=== PATIENT | male | born 1950 | race Caucasian/White ===

== ENCOUNTER → 2018-03-23 09:48 | Outpatient (CLI) | payer MEDICARE, OTHER, SELFPAY ==
[2018-03-23 10:37] LABS: Add Manual Diff / Slide Review NO; Basophils Percent Auto 0.8 % (0-2); Eosinophils Percent Auto 2.6 % (2-4); Hematocrit 39.7 % (41-53); Hemoglobin 13.6 g/dL (13.5-17.5); Lymphocytes Percent Auto 20.1 % (25-40); Mean Corpuscular HGB Conc 34.3 % (30-36); Mean Corpuscular Hemoglobin 28.6 PG (26-34); Mean Corpuscular Volume 83.4 fL (80-100); Monocytes Percent Auto 8.1 % (3-14); Neutrophils Absolute Auto 4800 /uL (3000-5900); Neutrophils Percent Auto 68.4 % (50-75); Platelet Count 177 X10^3/uL (150-400); Red Blood Cell Count 4.77 X10^6/uL (4.5-5.9); Red Cell Distribution Width 13.5 % (11.6-14.8)
[2018-03-23 10:52] LABS: Appearance Urine UA CLEAR; Bilirubin Urine UA NEGATIVE (NEGATIVE); Color Urine UA YELLOW; Glucose Urine UA NEGATIVE (Normal); Ketones Urine UA NEGATIVE (NEGATIVE); Leukocyte Esterase Urine UA NEGATIVE (NEGATIVE); Nitrite Urine UA Negative (Negative); Occult Blood Urine UA TRACE-INTACT (Negative); Protein Urine UA NEGATIVE (Negative); Urobilinogen Urine UA 0.2 E.U./dL (0.2)
[2018-03-23 10:58] LABS: Alanine Aminotransferase 35 IU/L (21-72); Albumin 4.3 g/dL (3.5-5.0); Albumin Globulin Ratio 1.4 (1.0-2.8); Alkaline Phosphatase 53 U/L (38-126); Aspartate Aminotransferase 22 IU/L (17-59); Blood Urea Nitrogen 18 mg/dL (9-20); Calcium 9.2 mg/dL (8.4-10.2); Carbon Dioxide 28 mmol/L (22-32); Chloride 101 mmol/L (98-107); Cholesterol 127 mg/dL (140-199); Estimated Glomerular Filt Rate > 60.0 mL/min (>60); Globulin 3.1 g/dL (1.7-4.1); Glucose 124 mg/dL (80-110); HDL Cholesterol 29 mg/dL (40-60); HEMOLYSIS < 15 (0-50); LDL Cholesterol Calculated 54 mg/dL (<100); Sodium 141 mmol/L (137-145); Total Protein 7.4 g/dL (6.3-8.2); Triglycerides 221 mg/dL (35-150)
[2018-03-23 11:29] LABS: Thyroid Stimulating Hormone 2.25 uIU/mL (0.47-4.68)
== END ==
PROVIDERS: PCP Family Medicine; Visit Provider Family Medicine
DX: E78.5 Hyperlipidemia, unspecified (principal); I10 Essential (primary) hypertension; E78.1 Pure hyperglyceridemia; Z51.81 Encounter for therapeutic drug level monitoring
CPT/HCPCS: 80053; 80061; 81003; 84443; 85025; G0103

== ENCOUNTER → 2018-09-21 12:10 | Outpatient (CLI) | payer MEDICARE, OTHER, SELFPAY ==
[2018-09-21 12:37] LABS: Hemoglobin A1C% w Est Avg Glu 6.1 % (4.0-6.0)
[2018-09-21 12:53] LABS: Alanine Aminotransferase 45 IU/L (21-72); Albumin 4.3 g/dL (3.5-5.0); Albumin Globulin Ratio 1.5 (1.0-2.8); Alkaline Phosphatase 49 U/L (38-126); Aspartate Aminotransferase 26 IU/L (17-59); BUN Creatinine Ratio 18.9 (6-22); Bilirubin Total 0.8 mg/dL (0.2-1.3); Blood Urea Nitrogen 17 mg/dL (9-20); Calcium 9.4 mg/dL (8.4-10.2); Carbon Dioxide 25 mmol/L (22-32); Chloride 104 mmol/L (98-107); Cholesterol 136 mg/dL (140-199); Estimated Glomerular Filt Rate > 60.0 mL/min (>60); Globulin 2.9 g/dL (1.7-4.1); Glucose 101 mg/dL (80-110); HDL Cholesterol 28 mg/dL (40-60); HEMOLYSIS < 15 (0-50); LDL Cholesterol Calculated 76 mg/dL (<100); Sodium 143 mmol/L (137-145); Total Protein 7.2 g/dL (6.3-8.2); Triglycerides 159 mg/dL (35-150)
== END ==
PROVIDERS: PCP Family Medicine; Visit Provider Family Medicine
DX: E78.5 Hyperlipidemia, unspecified (principal); I10 Essential (primary) hypertension; R73.9 Hyperglycemia, unspecified
CPT/HCPCS: 36415; 80053; 80061; 83036

== ENCOUNTER → 2020-02-07 13:59 | Outpatient (CLI) | payer MEDICARE, OTHER, SELFPAY ==
[2020-02-07 17:01] LABS: BUN Creatinine Ratio 20.5 (6-22); Blood Urea Nitrogen 18 mg/dL (9-20); Carbon Dioxide 25 mmol/L (22-32); Chloride 102 mmol/L (98-107); Estimated Glomerular Filt Rate > 60.0 mL/min (>60); Glucose 90 mg/dL (80-110); HEMOLYSIS < 15 (0-50); Potassium 3.7 mmol/L (3.4-5.1); Sodium 139 mmol/L (137-145)
[2020-02-07 17:30] LABS: Prostate Specific Antigen Scrn 0.706 ng/mL (0.1-4.0)
[2020-02-07 17:45] LABS: Creatinine Urine Random 81.2 mg/dL
[2020-02-07 17:47] LABS: Microalbumi Creatinin Ratio Ur 134.2 ug/mg CR (<30); Microalbumin Urine Random 10.9 mg/dL (0-1.6)
== END ==
PROVIDERS: PCP Student in an Organized Health Care Education/Training Program; Referring Provider Student in an Organized Health Care Education/Training Program; Visit Provider Student in an Organized Health Care Education/Training Program
DX: Z12.5 Encounter for screening for malignant neoplasm of prostate (principal); I10 Essential (primary) hypertension; Z87.448 Personal history of other diseases of urinary system; E55.9 Vitamin D deficiency, unspecified; R73.9 Hyperglycemia, unspecified
CPT/HCPCS: 36415; 80048; 82043; 82306; 82570; 83036; G0103

== ENCOUNTER → 2020-12-07 09:44 | Outpatient (CLI) | payer MEDICARE, OTHER, SELFPAY ==
[2020-12-07 10:32] LABS: Hemoglobin A1C% w Est Avg Glu 6.1 % (4.0-6.0)
[2020-12-07 10:42] LABS: BUN Creatinine Ratio 18.7 (6-22); Blood Urea Nitrogen 20 mg/dL (9-20); Carbon Dioxide 28 mmol/L (22-32); Chloride 103 mmol/L (98-107); Estimated Glomerular Filt Rate > 60.0 mL/min (>60); Glucose 118 mg/dL (80-110); HEMOLYSIS < 15 (0-50); Potassium 4.1 mmol/L (3.4-5.1); Sodium 139 mmol/L (137-145)
[2020-12-07 10:44] LABS: Microalbumi Creatinin Ratio Ur 26.6 ug/mg CR (<30); Microalbumin Urine Random 2.9 mg/dL (0-1.6)
== END ==
PROVIDERS: PCP Student in an Organized Health Care Education/Training Program; Referring Provider Student in an Organized Health Care Education/Training Program; Visit Provider Student in an Organized Health Care Education/Training Program
DX: E11.9 Type 2 diabetes mellitus without complications (principal); E55.9 Vitamin D deficiency, unspecified; I10 Essential (primary) hypertension; R80.9 Proteinuria, unspecified
CPT/HCPCS: 36415; 80048; 82043; 82306; 82570; 83036

== ENCOUNTER → 2021-06-07 07:50 | Outpatient (CLI) | payer MEDICARE, OTHER, SELFPAY ==
--- NOTE | 2021-06-07 07:51 | DI.ECHO.S_ITS ---
[place] [facility]---------+ [facility] +---------+ : : [address] : : : : [id number] : : : : Phone: [phone]---------+ Echocardiogram Report + + :Name: ABDULAZIZ HANSEN Study Date: 06/07/2021 Height: 69 in : :[facility] ReadingLocation: Weight: 215 lb : : Gender: Male BSA: 2.1 m2 : :: 1950 Age: 70 yrs BP: 165/84 mmHg: :Reason For Study: EVALUATE [place] : :Ordering Physician: JAMI, : :KARLY Performed By: Zeynep Arguello : :Referring: KARLY FARRELL : + + Interpretation Summary Mild concentric left ventricular hypertrophy with ejection fraction 60-65%. Mildly dilated left atrium. Moderate aortic stenosis. The peak aortic velocity is 3.26 m/sec. Mild aortic regurgitation. Mild mitral annular calcification. Mild mitral regurgitation. The aortic root is mildly dilated. The ascending aorta is mildly enlarged. Procedure: A two-dimensional transthoracic echocardiogram with color flow and Doppler was performed. The study quality was technically adequate. There is no prior echocardiogram noted for this patient. The patient was in sinus rhythm with heart rates between 62-74 bpm during the exam. Left Ventricle: The left ventricle is normal in size. There is mild concentric left ventricular hypertrophy. The ejection fraction is estimated to be 60-65%. There are no focal wall motion abnormalities. Right Ventricle: The right ventricle is normal in size and function. Atria: The left atrium is mildly dilated. Right atrial size is normal. There is no Doppler evidence for an interatrial shunt. Mitral Valve: The mitral valve leaflets are mildly calcified. The mitral valve leaflets appear mildly thickened, but open well. There is mild mitral annular calcification. There is mild mitral regurgitation. Aortic Valve: The aortic valve is moderately calcified. The aortic valve is trileaflet. There is moderate aortic stenosis. The peak aortic velocity is 3.26 m/sec. The aortic valve mean gradient is 24 mmHg. The calculated aortic valve area is 1.2 cm2. There is mild aortic regurgitation. Tricuspid Valve: The tricuspid valve is normal in structure and function. Pulmonary artery pressures cannot be estimated because of the lack of a measurable TR jet velocity but the IVC suggests a CVP of around 3 mmHg. There is trace tricuspid regurgitation. Pulmonic Valve: The pulmonic valve leaflets are thin and pliable; valve motion is normal. There is trace pulmonic regurgitation. Great Vessels: The aortic root is mildly dilated. The ascending aorta is mildly enlarged. The IVC is of normal diameter and collapses greater than 50% with a sniff. This suggests a low right atrial pressure of 3 mm Hg. Pericardium/ Pleura There is no pericardial effusion. There is no pleural effusion. MMode/2D Measurements & Calculations LVIDd: 5.4 cm LVOT diam: 2.3 cm LVIDs: 3.5 cm Ao root diam: 4.3 cm FS: 35.1 % asc Aorta Diam: 3.5 cm IVSd: 1.1 cm Ao Arch Diam (Prox Trans): 2.7 cm LVPWd: 1.1 cm LV norman. diameter/BSA (cm/m^2): 2.5 LV sys. diameter/BSA (cm/m^2): 1.6 LA A2 area: 28.4 cm2 RA long axis: 6.3 cm LA A4 area: 21.5 cm2 RA area: 20.8 cm2 LA length (vol): 6.4 cm RA vol: 58.4 ml LA vol: 81.1 ml RA : 27.4 ml/m2 LA vol index: 38.1 ml/m2 IVC diam: 1.2 cm RVD1 (basal): 3.8 cm TAPSE: 2.2 cm Doppler Measurements & Calculations Ao V2 max: 326.5 cm/sec LVOT Max Eugenio: 96.3 cm/sec Ao V2 mean: 222.9 cm/sec LV V1 max P.7 mmHg Ao max P.0 mmHg LV V1 VTI: 20.9 cm Ao mean P.4 mmHg DULCE(I,D): 1.1 cm2 Ao V2 VTI: 75.5 cm DULCE(V,D): 1.2 cm2 sev ratio: 0.28 DULCE indexed to BSA (cm^2/m^2): 0.54 MV E max eugenio: 95.1 cm/sec PA V2 max: 102.8 cm/sec MV A max eugenio: 112.0 cm/sec PA V2 mean: 73.3 cm/sec MV E/A: 0.85 PA mean P.3 mmHg Med Peak E' Eugenio: 6.0 cm/sec PA pr(Accel): 37.9 mmHg E/E' med: 15.8 Lat Peak E' Eugenio: 6.0 cm/sec E/E' lat: 15.8 E/e' average: 15.8 MV dec time: 0.22 sec SV(LVOT): 86.4 ml Electronically signed by: Monica marshall [place] Physician:06/07/2021 12:27 PM
== END ==
PROVIDERS: PCP Student in an Organized Health Care Education/Training Program; Referring Provider Student in an Organized Health Care Education/Training Program; Visit Provider Student in an Organized Health Care Education/Training Program
DX: I08.0 Rheumatic disorders of both mitral and aortic valves (principal); R01.1 Cardiac murmur, unspecified; I77.810 Thoracic aortic ectasia
CPT/HCPCS: 93306

== ENCOUNTER → 2022-02-24 11:20 | Outpatient (CLI) | payer MEDICARE, OTHER, SELFPAY ==
[2022-02-24 12:24] LABS: Hemoglobin A1C% w Est Avg Glu 5.7 % (4.0-6.0)
[2022-02-24 13:02] LABS: BUN Creatinine Ratio 21.8 (6-22); Blood Urea Nitrogen 19 mg/dL (9-20); Carbon Dioxide 28 mmol/L (22-32); Chloride 102 mmol/L (98-107); Cholesterol 147 mg/dL (140-199); Estimated Glomerular Filt Rate > 60 mL/min (>60); Glucose 111 mg/dL (80-110); HDL Cholesterol 39 mg/dL (40-60); HEMOLYSIS < 15 (0-50); LDL Cholesterol Calculated 65 mg/dL (<100); Potassium 4.2 mmol/L (3.4-5.1); Sodium 137 mmol/L (137-145); Triglycerides 215 mg/dL (35-150)
[2022-02-24 13:36] LABS: Prostate Specific Antigen Scrn 0.863 ng/mL (0.1-4.0)
[2022-02-24 16:36] LABS: Microalbumin Urine Random 2.5 mg/dL (0-1.6)
[2022-02-24 16:48] LABS: Vitamin D 25 Hydroxy (D3) 45.1 ng/mL (30.0-100.0)
[2022-02-24 16:51] LABS: Creatinine Urine Random 66.4 mg/dL; Microalbumi Creatinin Ratio Ur 37.6 ug/mg CR (<30)
== END ==
PROVIDERS: PCP Student in an Organized Health Care Education/Training Program; Referring Provider Student in an Organized Health Care Education/Training Program; Visit Provider Student in an Organized Health Care Education/Training Program
DX: E11.9 Type 2 diabetes mellitus without complications (principal); Z12.5 Encounter for screening for malignant neoplasm of prostate; E55.9 Vitamin D deficiency, unspecified; E78.5 Hyperlipidemia, unspecified; I10 Essential (primary) hypertension; R80.9 Proteinuria, unspecified
CPT/HCPCS: 80048; 80061; 82043; 82306; 82570; 83036; G0103

== ENCOUNTER → 2023-03-07 08:17 | Outpatient (CLI) | payer MEDICARE, OTHER, SELFPAY ==
[2023-03-07 09:47] LABS: Add Manual Diff / Slide Review NO; Basophils Absolute Auto 0 /uL (0-100); Basophils Percent Auto 0.6 % (0-2); Eosinophils Absolute Auto 100 /uL (0-450); Eosinophils Percent Auto 2.2 % (2-4); Hematocrit 38.8 % (41-53); Hemoglobin 13.2 g/dL (13.5-17.5); Lymphocytes Absolute Auto 1300 /uL (1100-4500); Lymphocytes Percent Auto 22.8 % (25-40); Mean Corpuscular HGB Conc 33.9 % (30-36); Mean Corpuscular Hemoglobin 28.6 PG (26-34); Mean Corpuscular Volume 84.2 fL (80-100); Monocytes Absolute Auto 500 /uL (0-900); Neutrophils Absolute Auto 3900 /uL (1500-7000); Neutrophils Percent Auto 66.4 % (50-75); Platelet Count 139 X10^3/uL (150-400); Red Blood Cell Count 4.61 X10^6/uL (4.5-5.9); Red Cell Distribution Width 14.4 % (11.6-14.8); White Blood Cell Count 5.9 X10^3/uL (4.5-11.0)
[2023-03-07 10:19] LABS: Microalbumin Urine Random 3.5 mg/dL (0-1.6)
[2023-03-07 10:21] LABS: Creatinine Urine Random 206.8 mg/dL; Microalbumi Creatinin Ratio Ur 16.9 ug/mg CR (<30)
[2023-03-07 10:28] LABS: Alanine Aminotransferase 18 IU/L (<50); Albumin Globulin Ratio 1.5 (1.0-2.8); Alkaline Phosphatase 44 U/L (38-126); Aspartate Aminotransferase 22 IU/L (17-59); BUN Creatinine Ratio 19.2 (6-22); Bilirubin Total 0.9 mg/dL (0.2-1.3); Blood Urea Nitrogen 19 mg/dL (9-20); Calcium 8.8 mg/dL (8.4-10.2); Carbon Dioxide 25 mmol/L (22-32); Chloride 104 mmol/L (98-107); Cholesterol 165 mg/dL (140-199); Estimated Glomerular Filt Rate > 60 mL/min (>60); Globulin 2.7 g/dL (1.7-4.1); Glucose 107 mg/dL (80-110); HDL Cholesterol 35 mg/dL (40-60); HEMOLYSIS < 15 (0-50); LDL Cholesterol Calculated 97 mg/dL (<100); Sodium 138 mmol/L (137-145); Total Protein 6.7 g/dL (6.3-8.2); Triglycerides 167 mg/dL (35-150)
[2023-03-07 10:56] LABS: Prostate Specific Antigen Scrn 1.05 ng/mL (0.1-4.0)
[2023-03-08 06:07] LABS: Labcorp Hemoglobin (Hb) A1c 5.8 % (4.8-5.6)
== END ==
PROVIDERS: PCP Student in an Organized Health Care Education/Training Program; Referring Provider Student in an Organized Health Care Education/Training Program; Visit Provider Student in an Organized Health Care Education/Training Program
DX: Z12.5 Encounter for screening for malignant neoplasm of prostate (principal); I10 Essential (primary) hypertension; E78.2 Mixed hyperlipidemia; R80.9 Proteinuria, unspecified; E11.9 Type 2 diabetes mellitus without complications
CPT/HCPCS: 36415; 80053; 80061; 82043; 82570; 83036; 85025; G0103

== ENCOUNTER → 2023-03-28 14:56 | Outpatient (CLI) | payer MEDICARE, OTHER, SELFPAY ==
--- NOTE | 2023-03-28 14:57 | DI.RAD.S_ITS ---
PROCEDURE: XR FOOT LT MIN 3V INDICATIONS: injury to left great toe TECHNIQUE: 3 views of the foot were acquired. COMPARISON: [facility], RG, XR FOOT 3V RT, 03/03/2004, 14:02. FINDINGS: Bones: There is a nondisplaced transverse fracture in the 1st distal phalanx. No suspicious bony lesions. Degenerative joint disease, [id number] at the 1st metatarsophalangeal joint and [id number] in multiple tarsometatarsal joints and interphalangeal joints. Calcaneal spurring. Soft tissues: No tibiotalar joint effusion. Achilles tendon appears normal. Dorsal soft tissue swelling. IMPRESSION: 1. Nondisplaced 1st distal phalangeal fracture. Dictated by: Barbara Augustin M.D. on 03/28/2023 at 17:27 Approved by: Barbara Augustin M.D. on 03/28/2023 at 17:30
== END ==
PROVIDERS: PCP Pediatrics; Referring Provider Pediatrics; Visit Provider Pediatrics
DX: S92.425A Nondisplaced fracture of distal phalanx of left great toe, initial encounter for closed fracture (principal); S97.112A Crushing injury of left great toe, initial encounter; X58.XXXA Exposure to other specified factors, initial encounter
CPT/HCPCS: 73630

== ENCOUNTER → 2023-04-28 07:55 | Outpatient (CLI) | payer MEDICARE, OTHER, SELFPAY ==
--- NOTE | 2023-04-28 07:58 | DI.ECHO.S_ITS ---
[place] [facility]---------+ [facility] +---------+ : : [address] : : : : [id number] : : : : Phone: [phone]+ Echocardiogram Report + + :Name: ABDULAZIZ HANSEN Study Date: 04/28/2023 Height: 69 in : :[facility] ReadingLocation: Weight: 210 lb : : Gender: Male BSA: 2.1 m2 : :: 1950 Age: 72 yrs BP: 142/71 mmHg: :Reason For Study: Nonrheumatic Aortic Valve Stenosis : :Ordering Physician: IZAIAH, : :YORDAN Burleson Performed By: Billie Judd : :Referring: YORDAN BLISS : + + Interpretation Summary The left ventricle is normal in size. Left ventricular systolic function appears normal without focal wall motion abnormalities. The ejection fraction is estimated to be 60-65%. Diastolic parameters suggest a relaxation abnormality of the left ventricle, consistent with probable normal filling pressures. The right ventricle is normal size. The right ventricular systolic function is normal. Pulmonary artery pressures cannot be estimated because of the lack of a measurable TR jet velocity. The left atrial size is normal. Right atrial size is normal. There is severe aortic stenosis. The peak aortic velocity is 4.70 m/sec. The calculated aortic valve area is 0.8 cm2. There is mild to moderate aortic regurgitation. Compared to the prior echo study, there has been an increase in the severity of aortic stenosis. The aortic root is normal size. Procedure: A two-dimensional transthoracic echocardiogram with color flow and Doppler was performed. The study quality was technically adequate. Comparison is made with the echocardiogram of 06/07/2021. The patient was in normal sinus rhythm during the exam. Left Ventricle: The left ventricle is normal in size. Left ventricular systolic function appears normal without focal wall motion abnormalities. The ejection fraction is estimated to be 60-65%. Diastolic parameters suggest a relaxation abnormality of the left ventricle, consistent with probable normal filling pressures. Right Ventricle: The right ventricle is normal size. The right ventricular systolic function is normal. Atria: The left atrial size is normal. Right atrial size is normal. There is no Doppler evidence for an interatrial shunt. Mitral Valve: The mitral valve leaflets are mildly calcified. The mitral valve mean gradient is 3 mmHg. There is trace mitral regurgitation. Aortic Valve: The aortic valve is not well visualized. The aortic valve is heavily calcified. There is severe aortic stenosis. The peak aortic velocity is 4.70 m/sec. The aortic valve mean gradient is 51 mmHg. The calculated aortic valve area is 0.8 cm2. Compared to the prior echo study, there has been an increase in the severity of aortic stenosis. There is mild to moderate aortic regurgitation. Tricuspid Valve: The tricuspid valve is normal. There is no tricuspid stenosis. There is trace tricuspid regurgitation. Pulmonary artery pressures cannot be estimated because of the lack of a measurable TR jet velocity. Pulmonic Valve: The pulmonic valve is not well visualized. There is no pulmonic valvular stenosis. There is no pulmonic valvular regurgitation. Great Vessels: The aortic root is normal size. The ascending aorta is normal in size. The pulmonary artery is normal size. The IVC is of normal diameter and collapses greater than 50% with a sniff. This suggests a low right atrial pressure of 3 mm Hg. Pericardium/ Pleura There is a trivial pericardial effusion noted. There is no pleural effusion. MMode/2D Measurements & Calculations LVIDd: 4.0 cm LVOT diam: 2.3 cm LVIDs: 2.7 cm Ao root diam: 3.2 cm FS: 32.5 % asc Aorta Diam: 3.4 cm IVSd: 1.6 cm LVPWd: 1.5 cm LV norman. diameter/BSA (cm/m^2): 1.9 LV sys. diameter/BSA (cm/m^2): 1.3 LA A2 area: 20.9 cm2 RA long axis: 5.4 cm LA A4 area: 16.8 cm2 RA area: 13.7 cm2 LA length (vol): 5.6 cm RA vol: 29.9 ml LA vol: 52.9 ml RA : 14.2 ml/m2 LA vol index: 25.1 ml/m2 RVD1 (basal): 3.5 cm LVLs ap4: 6.3 cm LVLd ap2: 8.1 cm TAPSE_phl: 2.9 cm LVLs ap2: 6.5 cm Doppler Measurements & Calculations Ao V2 max: 463.6 cm/sec LVOT Max Eugenio: 89.8 cm/sec Ao V2 mean: 339.0 cm/sec LV V1 max P.2 mmHg Ao max P.0 mmHg LV V1 VTI: 21.8 cm Ao mean P.4 mmHg DULCE(I,D): 0.80 cm2 Ao V2 VTI: 113.0 cm DULCE(V,D): 0.80 cm2 sev ratio: 0.19 DULCE indexed to BSA (cm^2/m^2): 0.38 MV E max eugenio: 101.0 cm/sec PA V2 max: 107.0 cm/sec MV A max eugenio: 116.0 cm/sec PA V2 mean: 75.6 cm/sec MV E/A: 0.87 PA mean P.0 mmHg Med Peak E' Eugenio: 5.5 cm/sec PA pr(Accel): 26.8 mmHg E/E' med: 18.3 Lat Peak E' Eugenio: 9.4 cm/sec E/E' lat: 10.8 E/e' average: 14.5 MV dec time: 0.25 sec MVA(VTI): 1.9 cm2 MV V2 mean: 86.5 cm/sec SV(LVOT): 90.4 ml MV mean P.0 mmHg MV V2 VTI: 48.5 cm AV VR_phl: 0.19 MV P1/2t-pr_phl: 72.0 msec DULCE(VTI)/BSA_phl: 0.38 Reading Physician:02:38 PM
== END ==
PROVIDERS: PCP Pediatrics; Referring Provider Pediatrics; Visit Provider Pediatrics
DX: I35.2 Nonrheumatic aortic (valve) stenosis with insufficiency (principal)
CPT/HCPCS: 93306

== ENCOUNTER → 2023-12-05 12:31 | Outpatient (CLI) | payer MEDICARE, OTHER, SELFPAY ==
[2023-12-05 13:31] LABS: Add Manual Diff / Slide Review NO; Basophils Absolute Auto 0 /uL (0-100); Basophils Percent Auto 0.7 % (0-2); Eosinophils Absolute Auto 100 /uL (0-450); Hematocrit 39.9 % (41-53); Hemoglobin 13.6 g/dL (13.5-17.5); Lymphocytes Absolute Auto 1300 /uL (1100-4500); Lymphocytes Percent Auto 22.7 % (25-40); Mean Corpuscular Hemoglobin 28.6 PG (26-34); Mean Corpuscular Volume 84.1 fL (80-100); Monocytes Absolute Auto 500 /uL (0-900); Monocytes Percent Auto 8.1 % (3-14); Neutrophils Absolute Auto 3900 /uL (1500-7000); Neutrophils Percent Auto 66.5 % (50-75); Platelet Count 157 X10^3/uL (150-400); Red Blood Cell Count 4.75 X10^6/uL (4.5-5.9); Red Cell Distribution Width 14.1 % (11.6-14.8); White Blood Cell Count 5.8 X10^3/uL (4.5-11.0)
[2023-12-05 13:46] LABS: Hemoglobin A1C% w Est Avg Glu 5.4 % (4.0-6.0)
[2023-12-05 13:55] LABS: Alanine Aminotransferase 15 IU/L (<50); Albumin Globulin Ratio 1.2 (1.0-2.8); Alkaline Phosphatase 49 U/L (38-126); Aspartate Aminotransferase 22 IU/L (17-59); BUN Creatinine Ratio 16.5 (6-22); Blood Urea Nitrogen 16 mg/dL (9-20); Carbon Dioxide 28 mmol/L (22-32); Chloride 104 mmol/L (98-107); Cholesterol 148 mg/dL (140-199); Estimated Glomerular Filt Rate > 60 mL/min (>60); Globulin 3.3 g/dL (1.7-4.1); Glucose 110 mg/dL (80-110); HDL Cholesterol 43 mg/dL (40-60); HEMOLYSIS < 15 (0-50); LDL Cholesterol Calculated 74 mg/dL (<100); Magnesium 1.9 mg/dL (1.6-2.3); Potassium 4.2 mmol/L (3.4-5.1); Sodium 137 mmol/L (137-145); Total Protein 7.3 g/dL (6.3-8.2); Triglycerides 157 mg/dL (35-150)
[2023-12-05 14:24] LABS: Thyroid Stimulating Hormone 2.86 uIU/mL (0.47-4.68)
== END ==
PROVIDERS: PCP Pediatrics; Referring Provider Internal Medicine Cardiovascular Disease; Visit Provider Internal Medicine Cardiovascular Disease
DX: I10 Essential (primary) hypertension (principal); R73.03 Prediabetes; E78.5 Hyperlipidemia, unspecified; I35.0 Nonrheumatic aortic (valve) stenosis
CPT/HCPCS: 36415; 80053; 80061; 83036; 83735; 84439; 84443; 85025

== ENCOUNTER → 2023-12-16 11:19 | Outpatient (CLI) | payer MEDICARE, OTHER, SELFPAY ==
[2023-12-16 12:16] LABS: Add Manual Diff / Slide Review NO; Basophils Absolute Auto 100 /uL (0-100); Basophils Percent Auto 0.8 % (0-2); Eosinophils Absolute Auto 200 /uL (0-450); Lymphocytes Absolute Auto 1500 /uL (1100-4500); Lymphocytes Percent Auto 19.1 % (25-40); Mean Corpuscular HGB Conc 34.2 % (30-36); Mean Corpuscular Hemoglobin 28.6 PG (26-34); Mean Corpuscular Volume 83.8 fL (80-100); Monocytes Absolute Auto 500 /uL (0-900); Monocytes Percent Auto 6.9 % (3-14); Neutrophils Absolute Auto 5700 /uL (1500-7000); Neutrophils Percent Auto 71.2 % (50-75); Platelet Count 175 X10^3/uL (150-400); Red Blood Cell Count 4.53 X10^6/uL (4.5-5.9); Red Cell Distribution Width 13.9 % (11.6-14.8); White Blood Cell Count 7.9 X10^3/uL (4.5-11.0)
[2023-12-16 12:40] LABS: BUN Creatinine Ratio 16.1 (6-22); Blood Urea Nitrogen 15 mg/dL (9-20); Calcium 8.8 mg/dL (8.4-10.2); Carbon Dioxide 28 mmol/L (22-32); Chloride 107 mmol/L (98-107); Estimated Glomerular Filt Rate > 60 mL/min (>60); Glucose 98 mg/dL (80-110); HEMOLYSIS < 15 (0-50); Potassium 3.9 mmol/L (3.4-5.1); Sodium 139 mmol/L (137-145)
== END ==
PROVIDERS: PCP Pediatrics; Referring Provider Internal Medicine; Visit Provider Internal Medicine
DX: I35.0 Nonrheumatic aortic (valve) stenosis (principal)
CPT/HCPCS: 36415; 80048; 85025

== ENCOUNTER → 2024-02-05 13:10 | Outpatient (CLI) | payer MEDICARE, OTHER, SELFPAY ==
[2024-02-05 14:11] LABS: Add Manual Diff / Slide Review NO; Basophils Absolute Auto 100 /uL (0-100); Basophils Percent Auto 0.8 % (0-2); Eosinophils Absolute Auto 100 /uL (0-450); Eosinophils Percent Auto 2.4 % (2-4); Hematocrit 40.1 % (41-53); Hemoglobin 13.6 g/dL (13.5-17.5); Lymphocytes Absolute Auto 1500 /uL (1100-4500); Lymphocytes Percent Auto 22.9 % (25-40); Mean Corpuscular HGB Conc 33.8 % (30-36); Mean Corpuscular Hemoglobin 28.6 PG (26-34); Mean Corpuscular Volume 84.5 fL (80-100); Monocytes Absolute Auto 500 /uL (0-900); Monocytes Percent Auto 7.3 % (3-14); Neutrophils Absolute Auto 4200 /uL (1500-7000); Neutrophils Percent Auto 66.6 % (50-75); Platelet Count 151 X10^3/uL (150-400); Red Blood Cell Count 4.75 X10^6/uL (4.5-5.9); White Blood Cell Count 6.3 X10^3/uL (4.5-11.0)
[2024-02-05 14:36] LABS: BUN Creatinine Ratio 15.8 (6-22); Blood Urea Nitrogen 16 mg/dL (9-20); Calcium 9.1 mg/dL (8.4-10.2); Carbon Dioxide 27 mmol/L (22-32); Chloride 107 mmol/L (98-107); Estimated Glomerular Filt Rate > 60 mL/min (>60); Glucose 116 mg/dL (80-110); HEMOLYSIS < 15 (0-50); Potassium 4.4 mmol/L (3.4-5.1); Sodium 138 mmol/L (137-145)
== END ==
PROVIDERS: PCP Family Medicine; Referring Provider Internal Medicine Interventional Cardiology; Visit Provider Internal Medicine Interventional Cardiology
DX: I35.0 Nonrheumatic aortic (valve) stenosis (principal)
CPT/HCPCS: 36415; 80048; 85025

== ENCOUNTER 2024-02-24 18:52 | Emergency (ER) | payer MEDICARE, OTHER, SELFPAY ==
[2024-02-24] VITALS (18 sets, daily range): BP systolic 105–193; BP diastolic 62–99; PULSE 90–119; RESP 8–27; TEMP 36.4; O2SAT 95–99; BMI 28.0
--- NOTE | 2024-02-24 18:58 | ED.GENADULT ---
HPI - General Adult General Chief complaint: Dizziness Stated complaint: dizziness, aortic valve replacement 4/3 Time Seen by Provider: 02/24/24 18:57 History of Present Illness HPI narrative: 73-year-old male with intermittent dizziness sensation and feeling that he might pass out, intermittent through the day today, and has been present and increasing frequency since TAVR placement 02/09/[address] [facility] by Dr. Britt. He denies chest pain, denies shortness of breath. Denies sensation of irregular heartbeat in or pounding fast heart rate sensation in chest. Denies headache, no trauma or injury. No weakness to face arm or leg. After his TAVR procedure he felt like he had these episodes once or twice daily, that he seemed to be able to abort with deep breathing, however it seems increasing in frequency these episodes of near-syncope, not necessarily improving with deep breathing abortive measures. He has not actually passed out. No shaking or seizure-like activity. No incontinence of urine or stool. He has some associated diaphoresis intermittently. Denies pain is in chest back arm leg neck jaw. He is taken aspirin daily. He recalls having the aortic stenosis murmur diagnosed on a routine visit, echocardiogram done spring 2023, then [facility] cardiac catheterization that apparently showed clean vessels, then TAVR procedure at [facility] on 02/14/24. Related Data Previous Rx's Medication Instructions Recorded amlodipine 5 mg tablet 5 mg PO BEDTIME #90 tabs 01/30/24 atorvastatin 20 mg tablet (Lipitor) 20 mg PO BEDTIME #90 tabs 01/30/24 lisinopril 20 mg tablet 20 mg PO DAILY #90 tabs 01/30/24 Allergies Allergy/AdvReac Type Severity Reaction Status Date / Time No Known Drug Allergies Allergy Verified 02/24/24 18:55 Review of Systems Review of Systems ROS Unobtainable: All systems reviewed & are unremarkable except as noted in HPI and below Patient History Medical History Mild anemia Generalized headaches (Unknown) History of smallpox (Unknown) Bright's disease (Unknown) Glomerulonephritis (Unknown) Hyperlipemia (Unknown) Hypertension (Unknown) Colon polyps (Unknown) Surgical History Hx of colonoscopy with polypectomy (08/2012) Family History Brother Prostate cancer Father Heart disease Hypertension Mother Asthma Blood disease Social History Smoking Status: Never smoker (quit 1971) Tobacco: How many years used: 4 alcohol intake: former (2-3 times per week) substance use type: marijuana (occasional) Smoking Status: Never smoker (quit 1971) Exam Narrative Exam Narrative: GENERAL: Well-developed patient, in mild distress. HEAD: Atraumatic. Normocephalic. EYES: Pupils equal round and reactive. Extraocular motions intact. No scleral icterus. No injection or drainage. ENT: Nose without bleeding, purulent drainage. Throat without erythema, tonsillar hypertrophy or exudate. Airway patent. NECK: Trachea midline. Non tender CARDIOVASCULAR: Fast rate, regular rhyth, without murmurs, gallops, or rubs. RESPIRATORY: Clear to auscultation. Breath sounds equal bilaterally. No wheezes, rales, or rhonchi. GASTROINTESTINAL: Abdomen soft, non-tender, nondistended. EXTREMITIES: No edema or joint tenderness. BACK: Nontender without deformity or crepitance. No flank tenderness. NEURO: AOx3. SKIN: No rash or erythema of visible areas Initial Vital Signs Initial Vital Signs: Vital Signs Temperature 97.6 F 02/24/24 18:55 Pulse Rate 118 H 02/24/24 18:55 Respiratory Rate 17 02/24/24 18:55 Blood Pressure 146/87 H 02/24/24 18:55 Pulse Oximetry 97 02/24/24 18:55 Oxygen Delivery Method Room Air 02/24/24 18:55 Course Orders Ordered: ED Orders 02/24/24 18:59 XR chest 1V Stat EKG-12 Lead Stat 02/24/24 19:03 Complete Blood Count AUTO DIFF Stat Comprehensive Metabolic Panel Stat Lipase Stat Magnesium Stat PTT Partial Thromboplastin Victor Hugo Stat Prothrombin Time INR Stat Troponin & CK Cardiac Panel Stat 02/24/24 19:05 CT head/brain wo con Stat 02/24/24 20:30 Magnesium Stat Discontinued Medications Amiodarone HCl (Amiodarone 150 Mg/3 Ml Vial) 300 mg IV NOW ONE Stop: 02/24/24 20:13 Last Admin: 02/24/24 20:21 Dose: Not Given Documented By: RAY Amiodarone HCl (Amiodarone 150 Mg/3 Ml Vial) 150 mg IV NOW ONE Stop: 02/24/24 20:11 Last Admin: 02/24/24 20:14 Dose: 150 mg Documented By: RAY Aspirin (Aspirin 81 Mg Chew Tab) 324 mg PO NOW ONE Stop: 02/24/24 19:00 Last Admin: 02/24/24 19:15 Dose: 243 mg Documented By: MELBA Amiodarone HCl/Dextrose (Nexterone) 360 mg in 200 mls @ 33.333 mls/hr IV NOW ONE; Protocol Stop: 02/25/24 02:17 Last Admin: 02/24/24 20:34 Dose: 33.333 mls/hr, 33.33 mls/hr Documented By: MELBA Vital Signs Vital signs: Vital Signs - 8 hr 02/24/24 18:55 02/24/24 19:03 02/24/24 19:07 Temperature 97.6 F Pulse Rate 118 H 117 H Respiratory Rate 17 18 Blood Pressure 146/87 H 134/86 Pulse Oximetry 97 Oxygen Delivery Method Room Air 02/24/24 19:07 02/24/24 19:30 02/24/24 20:00 Temperature Pulse Rate 112 H 118 H 101 H Respiratory Rate 10 L 25 H 27 H Blood Pressure Pulse Oximetry 99 99 98 Oxygen Delivery Method 02/24/24 20:14 02/24/24 20:14 02/24/24 20:14 Temperature Pulse Rate 111 H Respiratory Rate 24 Blood Pressure 193/99 H 193/99 H Pulse Oximetry 99 Oxygen Delivery Method 02/24/24 20:29 02/24/24 20:29 02/24/24 20:30 Temperature Pulse Rate 119 H Respiratory Rate 13 Blood Pressure 147/67 H 149/70 H Pulse Oximetry 98 Oxygen Delivery Method 02/24/24 20:30 02/24/24 20:40 02/24/24 20:40 Temperature Pulse Rate 118 H 110 H Respiratory Rate 16 11 L Blood Pressure 122/73 Pulse Oximetry 98 98 Oxygen Delivery Method 02/24/24 20:50 02/24/24 20:50 02/24/24 21:00 Temperature Pulse Rate 104 H Respiratory Rate 11 L Blood Pressure 122/81 124/72 Pulse Oximetry 98 Oxygen Delivery Method 02/24/24 21:00 02/24/24 21:10 02/24/24 21:10 Temperature Pulse Rate 101 H 100 H Respiratory Rate 11 L 11 L Blood Pressure 116/74 Pulse Oximetry 98 98 Oxygen Delivery Method 02/24/24 21:20 02/24/24 21:20 02/24/24 21:30 Temperature Pulse Rate 95 H 99 H Respiratory Rate 8 L 10 L Blood Pressure 105/68 Pulse Oximetry 98 98 Oxygen Delivery Method 02/24/24 21:30 02/24/24 21:40 02/24/24 21:40 Temperature Pulse Rate 94 H Respiratory Rate 9 L Blood Pressure 110/71 110/72 Pulse Oximetry 97 Oxygen Delivery Method 02/24/24 21:50 02/24/24 21:50 02/24/24 22:00 Temperature Pulse Rate 90 Respiratory Rate 12 Blood Pressure 117/70 123/62 Pulse Oximetry 95 Oxygen Delivery Method 02/24/24 22:00 02/24/24 22:10 02/24/24 22:10 Temperature Pulse Rate 91 H 94 H Respiratory Rate 10 L 12 Blood Pressure 115/65 Pulse Oximetry 98 98 Oxygen Delivery Method Medical Decision Making Differential Diagnosis Differential Diagnosis: Syncope, tachycardia, dysrhythmia, cerebrovascular disease, TIA/stroke Medical Records Medical records reviewed: Yes I reviewed the patient's medical records. Lab Data Lab results reviewed: Yes I reviewed the patient's lab results. 02/24/24 19:03 02/24/24 19:03 Labs: Lab Results 02/24/24 02/24/24 Range/Units 19:03 20:30 WBC 11.4 H (4.5-11.0) X10^3/uL RBC 4.86 (4.5-5.9) X10^6/uL Hgb 13.6 (13.5-17.5) g/dL Hct 40.1 L (41-53) % MCV 82.4 (80-100) fL MCH 28.0 (26-34) PG MCHC 34.0 (30-36) % RDW 14.2 (11.6-14.8) % Plt Count 269 (150-400) X10^3/uL Neut % (Auto) 68.8 (50-75) % Lymph % (Auto) 19.7 L (25-40) % [place] % (Auto) 8.3 (3-14) % Eos % (Auto) 2.1 (2-4) % Baso % (Auto) 1.1 (0-2) % Neut # (Auto) 7900 H (0102-7885) /uL Lymph # (Auto) 2300 (9651-0011) /uL [place] # (Auto) 900 (0-900) /uL Eos # (Auto) 200 (0-450) /uL Baso # (Auto) 100 (0-100) /uL PT 12.5 (9.4-12.5) SECONDS INR 1.1 (0.9-1.3) APTT 36 (25.1-36.5) SECONDS Sodium 139 (137-145) mmol/L Potassium 4.2 (3.4-5.1) mmol/L Chloride 105 (98-107) mmol/L Carbon Dioxide 25 (22-32) mmol/L BUN 22 H (9-20) mg/dL Creatinine 1.03 (0.66-1.25) mg/dL Estimated GFR > 60 (>60) mL/min BUN/Creatinine Ratio 21.4 (6-22) Glucose 112 H (80-110) mg/dL Calcium 9.4 (8.4-10.2) mg/dL Magnesium 2.1 1.9 (1.6-2.3) mg/dL Total Bilirubin 0.9 (0.2-1.3) mg/dL AST 27 (17-59) IU/L ALT 17 (<50) IU/L Alkaline Phosphatase 65 (38-126) U/L Total Creatine Kinase 55 (55-170) U/L Troponin I 0.015 (0.01-0.034) ng/mL Total Protein 7.7 (6.3-8.2) g/dL Albumin 4.6 (3.5-5.0) g/dL Globulin 3.1 (1.7-4.1) g/dL Albumin/Globulin Ratio 1.5 (1.0-2.8) Lipase 167 (23-300) U/L Imaging Data CT scan - head: Radiologist's Impression: [address] [address] [address] Scan Report Signed Patient: Cisco Leggett MR#: [id number] : 1950 Acct:[id number] Age/Sex: 73 / M Date of Service: 02/24/24 Loc: ED Accession Number: [id number] Procedure: CT head/brain wo con Ordering Provider: Geoff Jovel MD PROCEDURE: CT HEAD/BRAIN WO CON INDICATIONS: dizziness TECHNIQUE: Noncontrast 4.5 mm thick angled axial sections acquired from the foramen magnum to the vertex, with coronal and sagittal reformats. For radiation dose reduction, the following was used: automated exposure control, adjustment of mA and/or kV according to patient size. COMPARISON: None. FINDINGS: Image quality: Diagnostic. CSF spaces: Basal cisterns are patent. No extra-axial fluid collections. The ventricles are symmetric in size and shape. Brain: No intracranial bleeds or masses. There is cerebral volume loss for age, with resultant ventricular and sulcal prominence. There are periventricular and deep white matter chronic small vessel ischemic changes. There is intracranial internal carotid artery atherosclerosis. Skull and face: Calvarium and visualized facial bones appear intact, without suspicious lesions. Sinuses: Visualized sinuses and mastoids are clear. IMPRESSION: 1. No acute intracranial pathology. 2. Age related volume loss and moderate white matter chronic ischemic changes. Dictated by: Jose R Rutledge M.D. on 02/24/2024 at 19:20 Approved by: Jose R Rutledge M.D. on 02/24/2024 at 19:20 Chest x-ray: Radiologist's Impression: [place] [address] XRay Report Signed Patient: Cisco Leggett MR#: [id number] : 1950 Acct:[id number] Age/Sex: 73 / M Date of Service: 02/24/24 Loc: ED Accession Number: [id number] Procedure: XR chest 1V Ordering Provider: Geoff Jovel MD PROCEDURE: XR CHEST 1V INDICATIONS: chest pain TECHNIQUE: One view of the chest was acquired. COMPARISON: None. FINDINGS: Surgical changes and devices: None. Lungs and pleura: Lungs are clear. No pleural effusions or pneumothorax. Mediastinum: Mediastinal contours appear normal. Heart size is normal. Bones and chest wall: No suspicious bony lesions. Overlying soft tissues appear unremarkable. IMPRESSION: No acute cardiopulmonary pathology. Dictated by: Jose R Rutledge M.D. on 02/24/2024 at 19:23 Approved by: Joes R Rutledge M.D. on 02/24/2024 at 19:23 ECG Data Attestation: I personally reviewed and interpreted this ECG as follows: Interpretation: 02/24/24 at 2015h, EKG showed wide complex rhythm with rate 120 beats per minute, left bundle-branch block pattern noted, different than comparison study 10/21/2022 that showed normal sinus rhythm with rate 90 and right bundle pattern 02/24/2024 at 2010h, Rhythm Strip showed wide complex tachycardia with rate 180-200, nonsustained but for approximally 75-100 beats 02/24/2024 at 1904h, EKG showed Wide complex rhythm with rate 113, left bundle branch block pattern, looks similar to EKG 1, similar in rate. MDM Narrative Medical decision making narrative: 73-year-old male with a intermittent near-syncope symptoms on occasion after TAVR procedure [facility] 02/09/2024, increasing frequency of these event, no longer responding deep breathing measures, had approximately 10 of these events earlier today. No associated chest pain but some diaphoresis. CT head negative. EKG shows left bundle branch block pattern, with ventricular response rate 113, which appears different than previous available EKG here from 08/21/2023 which showed right bundle branch block normal sinus rhythm. Troponin 0.015 negative. Creatinine electrolytes normal. Hemoglobin unremarkable. We will consult [facility] Additional Information: 1950, case discussed with Cardiology at [facility] Dr Edmonds, who believes patient should be admitted here on telemetry, does not recommend transfer to their facility at this time, could also consider echocardiogram. We will contact our on-call vision care associate Dr. Zenaida romano, if he might be the 1 to review echocardiogram, then anticipate discussing case with hospitalist 1999, case discussed with on-call cardiology Dr. Chen, agrees with need for admission here, could have intermittent high-grade AVR status post TAVR, observe to see if this is what is happening, as he might need pacemaker if this is the case. We will contact hospitalist regarding admission here on telemetry. Will request 02/09/24 comparison EKG from [facility] if any can be sent now Case discussed with hospitalist Dr. Sommer, accepts patient for admission to observation telemetry 2009, Patient then had nonsustained run of wide complex tachycardia proximally 100 beats, while he was feeling the same symptoms of near-syncope, did not actually pass out, spontaneously aborted, no defibrillation, normotensive. Could be PSVT or AfibRVR episode with LBBB, could be ventricular tachycardia, IV amiodarone bolus ordered, then infusion. Pads placed. [facility], he does not feel comfortable admitting here, requests transfer. Will contact [facility] again. Case discussed again with Dr. Edmonds cardiology [facility], he can consult, admit to hospitalist service there. Agrees with amiodarone 150 mg bolus with infusion for now, advised no other treatments for now. Await call back from [facility] hospitalist service. Patient/family informed current recommendations, anticipate [facility] 2[facility] patient for [facility], no further tachyarrhythmia on monitor, on amiodarone infusion after bolus, EMS team here for transfer to [facility], stable/improved Critical Care Time Critical Care Time Critical Care Time: Yes Total Critical Care Time: 45 Attestation: The high probability of a clinically significant, sudden or life threatening deterioration of the [cardiopulmonary] systems required my full and direct attention, intervention and personal management. The aggregate critical care time was [45] minutes. This time is in addition to time spent performing reported procedures but includes the following: [x] Data Review and interpretation [x] Patient assessment and monitoring of vital signs [x] Documentation [x] Medication orders and management Discharge Plan Departure Patient Disposition: [facility] Clinical Impression: Near syncope, Status post transcatheter aortic valve replacement (TAVR) using bioprosthesis, Left bundle branch block, Tachycardia Prescriptions: No Action atorvastatin [Lipitor] 20 mg tablet 20 mg PO BEDTIME Qty: 90 3RF Hold Instructions: Needs labs lisinopril 20 mg tablet 20 mg PO DAILY Qty: 90 3RF Hold Instructions: Needs labs amlodipine 5 mg tablet 5 mg PO BEDTIME Qty: 90 3RF Hold Instructions: Needs labs Rx Instructions: start taking at bedtime Referrals: Felix Pizano, [Primary Care Provider] -
--- NOTE | 2024-02-24 19:05 | DI.CT.S_ITS ---
PROCEDURE: CT HEAD/BRAIN WO CON INDICATIONS: dizziness TECHNIQUE: Noncontrast 4.5 mm thick angled axial sections acquired from the foramen magnum to the vertex, with coronal and sagittal reformats. For radiation dose reduction, the following was used: automated exposure control, adjustment of mA and/or kV according to patient size. COMPARISON: None. FINDINGS: Image quality: Diagnostic. CSF spaces: Basal cisterns are patent. No extra-axial fluid collections. The ventricles are symmetric in size and shape. Brain: No intracranial bleeds or masses. There is cerebral volume loss for age, with resultant ventricular and sulcal prominence. There are periventricular and deep white matter chronic small vessel ischemic changes. There is intracranial internal carotid artery atherosclerosis. Skull and face: Calvarium and visualized facial bones appear intact, without suspicious lesions. Sinuses: Visualized sinuses and mastoids are clear. IMPRESSION: 1. No acute intracranial pathology. 2. Age related volume loss and moderate white matter chronic ischemic changes. Dictated by: Jose R Rutledge M.D. on 02/24/2024 at 19:20 Approved by: Jose R Rutledge M.D. on 02/24/2024 at 19:20
[2024-02-24] MEDS: ASPIRIN 81 MG CHEW TAB 324 MG PO (19:15)
[2024-02-24 19:21] LABS: INR 1.1 (0.9-1.3); Prothrombin Time 12.5 SECONDS (9.4-12.5)
[2024-02-24 19:23] LABS: PTT Partial Thromboplastin Tim 36 SECONDS (25.1-36.5)
[2024-02-24 19:25] LABS: Alanine Aminotransferase 17 IU/L (<50); Albumin 4.6 g/dL (3.5-5.0); Albumin Globulin Ratio 1.5 (1.0-2.8); Alkaline Phosphatase 65 U/L (38-126); Aspartate Aminotransferase 27 IU/L (17-59); BUN Creatinine Ratio 21.4 (6-22); Bilirubin Total 0.9 mg/dL (0.2-1.3); Blood Urea Nitrogen 22 mg/dL (9-20); Calcium 9.4 mg/dL (8.4-10.2); Carbon Dioxide 25 mmol/L (22-32); Chloride 105 mmol/L (98-107); Creatine Kinase 55 U/L (55-170); Estimated Glomerular Filt Rate > 60 mL/min (>60); Globulin 3.1 g/dL (1.7-4.1); Glucose 112 mg/dL (80-110); HEMOLYSIS 45 (0-50); Lipase 167 U/L (23-300); Magnesium 2.1 mg/dL (1.6-2.3); Potassium 4.2 mmol/L (3.4-5.1); Sodium 139 mmol/L (137-145); Total Protein 7.7 g/dL (6.3-8.2)
[2024-02-24 19:29] LABS: Add Manual Diff / Slide Review NO; Basophils Absolute Auto 100 /uL (0-100); Basophils Percent Auto 1.1 % (0-2); Eosinophils Absolute Auto 200 /uL (0-450); Eosinophils Percent Auto 2.1 % (2-4); Hematocrit 40.1 % (41-53); Hemoglobin 13.6 g/dL (13.5-17.5); Lymphocytes Absolute Auto 2300 /uL (1100-4500); Lymphocytes Percent Auto 19.7 % (25-40); Mean Corpuscular Volume 82.4 fL (80-100); Monocytes Absolute Auto 900 /uL (0-900); Monocytes Percent Auto 8.3 % (3-14); Neutrophils Absolute Auto 7900 /uL (1500-7000); Neutrophils Percent Auto 68.8 % (50-75); Platelet Count 269 X10^3/uL (150-400); Red Blood Cell Count 4.86 X10^6/uL (4.5-5.9); Red Cell Distribution Width 14.2 % (11.6-14.8); White Blood Cell Count 11.4 X10^3/uL (4.5-11.0)
[2024-02-24 19:36] LABS: Troponin I 0.015 ng/mL (0.01-0.034)
[2024-02-24] MEDS: AMIODARONE 150 MG/3 ML VIAL IV (20:14)
--- NOTE | 2024-02-24 20:15 | PC.NURSE ---
Pts rhythm on the monitor noted to be sustained Vtach. This RN and multiple staff to bedside, POLLO Jovel at bedside. Verbal order for 150 of amiodarone given IV @ 2013 by Claus FLETCHER. Pt noted to be awake and alert. Pt states that this is the feeling that he has been having when he does feel that he is going to pass out. Pt had a total of three runs of Vtach witnessed by staff in this time period. POLLO Jovel putting a call out to Cardiology w this new information.
[2024-02-24] MEDS: AMIODARONE 360 MG/200 ML PIGGYBACK 33.33 MG IV (20:34)
[2024-02-24 20:50] LABS: Magnesium 1.9 mg/dL (1.6-2.3)
--- NOTE | 2024-02-24 21:25 | PC.NURSE ---
Run of Vtach noted for about 10 seconds. Pt remained alert and oriented as in previous episodes. Pt not noting any pain at this time.
--- NOTE | 2024-02-24 22:11 | PC.NURSE ---
ED NOTE: Patient transferred to [facility] at [address] Jovel and excepting MD Dr. THORNTON for continuity of care post Aortic Valve replacement.
--- NOTE | 2024-02-24 22:13 | PC.NURSE ---
Pt report given to [facility] crew. Pts called to update on pts transfer status to [facility].
--- NOTE | 2024-04-02 15:45 | PC.NURSE ---
late entry- per RN patient was transferred to another facility with amiodarone infusing.
== END 2024-02-24 22:22 | disposition short-term general hospital (02) ==
PROVIDERS: Emergency Provider Emergency Medicine; PCP Family Medicine
DX: R55 Syncope and collapse (principal); I44.7 Left bundle-branch block, unspecified; R00.0 Tachycardia, unspecified; R07.9 Chest pain, unspecified; Z95.3 Presence of xenogenic heart valve
CPT/HCPCS: 36415; 70450; 71045; 80053; 82550; 83690; 83735; 84484; 85025; 85610; 85730; 93005; 93010; 96365; 96366; 96375; 99284; 99285; J0282

== ENCOUNTER → 2024-07-12 13:22 | Outpatient (CLI) | payer MEDICARE, OTHER, SELFPAY ==
--- NOTE | 2024-07-12 13:23 | DI.RAD.S_ITS ---
PROCEDURE: XR FOOT RT MIN 3V INDICATIONS: Right foot pain TECHNIQUE: 3 views of the foot were acquired. COMPARISON: [facility], CR, XR FOOT LT MIN 3V, 03/28/2023, 14:53. FINDINGS: Bones: No fractures or dislocations. Moderate degenerative changes. Calcaneal spurs. No suspicious bony lesions. Soft tissues: No tibiotalar joint effusion. Achilles tendon appears normal. IMPRESSION: No acute bony abnormality. Dictated by: Uday Erickson M.D. on 07/12/2024 at 20:03 Approved by: Uday Erickson M.D. on 07/12/2024 at 20:06
== END ==
PROVIDERS: PCP Family Medicine; Referring Provider Nurse Practitioner Family; Visit Provider Nurse Practitioner Family
DX: M77.31 Calcaneal spur, right foot (principal); M79.671 Pain in right foot
CPT/HCPCS: 73630

== ENCOUNTER 2024-08-06 08:09 | Day surgery (SDC) | payer MEDICARE, OTHER, SELFPAY ==
--- NOTE | 2024-08-06 | PATH_ITS ---
[facility] Accession Number: [id number] No. of containers..01 Tissue . 01 Material submitted: . colon - TRANSVERSE POLYP . 01 Diagnosis: TRANSVERSE COLON POLYP, BIOPSY: Tubular adenoma. MRV 08/07/2024 1353 Local . 01 Electronically signed: . Lisa Pitts MD, Pathologist NPI- [id number] . 01 Gross description: . TRANSVERSE POLYP: Received in formalin is 1 fragment(s) of vega, soft tissue measuring 0.3 x 0.3 x 0.3 cm submitted entirely in 1 cassette(s) /DIANDRA 08/07/2024 0059 Local . 01 Pathologist provided ICD-10: D12.3 . 01 CPT . 538248 Specimen Comment: A courtesy copy of this report has been sent to [phone] Performed at: [address] [facility] [id number] MD Brendan De Paz MD Phone: [phone]
--- NOTE | 2024-08-06 09:03 | P.HP_ITS ---
History of Present Illness History of Present Illness Date Patient Seen: 08/06/24 Time Patient Seen: 09:04 Chief complaint: Screening Colonoscopy Narrative: 74-year-old man personal history of colonic polyps here for screening colonoscopy. Last colonoscopy 5 years ago. No family history of colon cancer. No abdominal concerns today. [facility] Medical History Presence of combination internal cardiac defibrillator (ICD) and pacemaker Mild anemia Generalized headaches (Unknown) History of smallpox (Unknown) Bright's disease (Unknown) Glomerulonephritis (Unknown) Hyperlipemia (Unknown) Hypertension (Unknown) Colon polyps (Unknown) Surgical History Hx of colonoscopy with polypectomy (08/2012) Family History Brother Prostate cancer Father Heart disease Hypertension Mother Asthma Blood disease Social History Smoking Status: Never smoker Tobacco: How many years used: 4 alcohol intake: never substance use type: marijuana (occasional) Meds Home Medications and Allergies Home Medications Medication Instructions Recorded Confirmed Type amlodipine 5 mg tablet 5 mg PO BEDTIME #90 tabs 01/30/24 08/06/24 Rx lisinopril 20 mg tablet 20 mg PO DAILY #90 tabs 01/30/24 08/06/24 Rx amiodarone 200 mg tablet 200 mg PO DAILY 04/25/24 08/06/24 History aspirin 81 mg chewable tablet 81 mg PO DAILY 04/25/24 08/06/24 History atorvastatin 10 mg tablet 10 mg PO DAILY 04/25/24 08/06/24 History metoprolol succinate 100 mg 100 mg PO DAILY 04/25/24 08/06/24 History tablet,extended release 24 hr sodium,potassium,mag sulfates 17.5 See Rx Instructions PO .COMPLEX 05/30/24 07/12/24 Rx gram-3.13 gram-1.6 gram oral soln #354 mL (Suprep Bowel Prep Kit) Allergies Allergy/AdvReac Type Severity Reaction Status Date / Time No Known Drug Allergies Allergy Verified 08/06/24 08:19 Exam Narrative Exam Narrative: General adult man alert oriented no acute distress Chest nonlabored respiration Extremities warm well perfused Assessment & Plan Assessment and plan (1) Colon polyps: Qualifiers: Colon polyp type: unspecified Colon location: unspecified part of colon Qualified Code(s): K63.5 - Polyp of colon Status: Acute Assessment & Plan narrative: The patient requires colorectal screening and colonoscopy is recommended. Technical details were discussed. Risks, benefits, alternatives explained. Risks including but not limited to myocardial infarction, aspiration, bleeding, pain, missed lesion, incomplete examination, need for further radiographic studies, intestinal injury, and need for major abdominal surgery were discussed. All questions were answered to their satisfaction, and they are in agreement with this plan. Time-Based Coding :: [TOTAL MINUTES] spent with patient and on the chart (including review of chart, obtaining history, exam, reviewing outside data, placing orders, documenting exam and treatment plan, and counseling patient) on [DATE].
[2024-08-06 09:32] VITALS: BP 112/58; PULSE 55; RESP 16; TEMP 36.2; O2SAT 95
--- NOTE | 2024-08-06 09:35 | P.OP.COLON_ITS ---
Operative Date/Time/Diagnoses Date of procedure: 08/06/24 Time of procedure: 09:35 Pre-op diagnosis: History of colonic polyps Procedure & Clinicians Study performed: Colonoscopy and polypectomy Same procedure as scheduled: Yes Indications: Colorectal screening Surgeon: Vipin Neves Procedure Notes Procedure in detail: The history and physical was performed/updated and the patient is ASA class is 3. The procedure was discussed in detail with the patient. Potential risks complications including infection, bleeding, missed diagnosis, perforation, need for surgery, and were explained. Their questions were answered and informed consent was obtained. Patient was brought to the procedure room and placed standard monitoring equipment. The patient's vital signs were monitored continuously throughout the entire procedure. Prior to starting time-out was performed. The patient was placed in the left lateral recumbent position. Procedural sedation was administered by anesthesia. Examination began with a thorough inspection of the perianal area there was no evidence of fissures, fistulae, external hemorrhoids or cutaneous malignancy. The colonoscopy scope was then placed into the anal canal and was advanced to the cecum, which was identified by the ileocecal valve, the appendiceal orifice and the confluence of the taenia. The scope was then slowly withdrawn examining colon thoroughly in all directions, irrigating it of any residual stool. The scope was retroflexed within the rectum The patient tolerated the procedure well. They will be discharged once criteria are met. The prep was of fair quality. The withdrawl time was 14 minutes. FINDINGS * Extensive barton diverticulosis * Transverse colon 3-5 mm polyp removed with biopsy forceps. * Internal hemorrhoids Specimen(s): other (Transverse colon polyp) Impression: Colonic polyp x1 Post-procedure Recommendations: High fiber diet Plan for aftercare: Follow up dependent on pathology findings Disposition: same day surgery
[2024-08-06 09:36] VITALS: BP 106/57; PULSE 55; RESP 15; O2SAT 93
[2024-08-06 09:42] VITALS: BP 104/59; PULSE 55; RESP 12; TEMP 36.4; O2SAT 94
[2024-08-06 09:43] VITALS: BP 111/64; PULSE 55; RESP 11; TEMP 36.3; O2SAT 94
== END 2024-08-06 09:55 | disposition home or self-care (01) ==
PROVIDERS: PCP Family Medicine; Referring Provider Surgery; Visit Provider Surgery
PROC: 0DJD8ZZ Inspection of Lower Intestinal Tract, Via Natural or Artificial Opening Endoscopic (ICD-10-PCS; CPT 45378; principal; 2024-08-06 09:15)
DX: Z12.11 Encounter for screening for malignant neoplasm of colon (principal); Z86.0100 Personal history of colon polyps, unspecified; K57.30 Diverticulosis of large intestine without perforation or abscess without bleeding; K64.8 Other hemorrhoids; D12.3 Benign neoplasm of transverse colon
CPT/HCPCS: 45380; J2704

== ENCOUNTER 2024-10-12 22:48 | Emergency (ER) | payer MEDICARE, OTHER, SELFPAY ==
[2024-10-12 22:51] VITALS: BP 162/77; PULSE 60; RESP 18; TEMP 36.8; O2SAT 98; BMI 28.0
--- NOTE | 2024-10-12 22:57 | DI.RAD.S_ITS ---
PROCEDURE: XR CHEST 1V INDICATIONS: chest pain TECHNIQUE: One view of the chest was acquired. COMPARISON: [facility], CR, XR CHEST 1V, 02/24/2024, 19:07. FINDINGS: Lordotic patient position. Surgical changes and devices: Multi lead left pacemaker. Aortic valvuloplasty. Lungs and pleura: Lungs are clear. No pleural effusions or pneumothorax. Mediastinum: Mild cardiomegaly. Normal mediastinal contour. Bones and chest wall: No suspicious bony lesions. Overlying soft tissues appear unremarkable. IMPRESSION: No acute process. Stable mild cardiomegaly. Dictated by: Veronica Vazquez M.D. on 10/12/2024 at 23:52 Approved by: Veronica Vazquez M.D. on 10/12/2024 at 23:53
--- NOTE | 2024-10-12 23:04 | EKG_ITS ---
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
[2024-10-12 23:44] LABS: Add Manual Diff / Slide Review NO; Basophils Absolute Auto 100 /uL (0-100); Basophils Percent Auto 1.1 % (0-2); Eosinophils Absolute Auto 100 /uL (0-450); Hematocrit 41.3 % (41-53); Lymphocytes Absolute Auto 1300 /uL (1100-4500); Lymphocytes Percent Auto 18.7 % (25-40); Mean Corpuscular Hemoglobin 29.7 PG (26-34); Mean Corpuscular Volume 87.5 fL (80-100); Monocytes Absolute Auto 700 /uL (0-900); Monocytes Percent Auto 10.4 % (3-14); Neutrophils Absolute Auto 4800 /uL (1500-7000); Neutrophils Percent Auto 67.8 % (50-75); Platelet Count 141 X10^3/uL (150-400); Red Blood Cell Count 4.72 X10^6/uL (4.5-5.9); Red Cell Distribution Width 13.6 % (11.6-14.8); White Blood Cell Count 7.1 X10^3/uL (4.5-11.0)
[2024-10-12 23:49] LABS: Prothrombin Time 11.4 SECONDS (9.4-12.5)
[2024-10-12 23:52] LABS: PTT Partial Thromboplastin Tim 36 SECONDS (25.1-36.5)
[2024-10-12 23:53] LABS: Alanine Aminotransferase 28 IU/L (<50); Albumin 4.1 g/dL (3.5-5.0); Albumin Globulin Ratio 1.3 (1.0-2.8); Alkaline Phosphatase 46 U/L (38-126); Aspartate Aminotransferase 34 IU/L (17-59); BUN Creatinine Ratio 15.9 (6-22); Bilirubin Total 0.7 mg/dL (0.2-1.3); Blood Urea Nitrogen 20 mg/dL (9-20); Calcium 9.6 mg/dL (8.4-10.2); Carbon Dioxide 26 mmol/L (22-32); Chloride 105 mmol/L (98-107); Creatine Kinase 54 U/L (55-170); Estimated Glomerular Filt Rate 59 mL/min (>60); Globulin 3.2 g/dL (1.7-4.1); Glucose 127 mg/dL (80-110); HEMOLYSIS 15 (0-50); Lipase 174 U/L (23-300); Magnesium 1.9 mg/dL (1.6-2.3); Potassium 3.9 mmol/L (3.4-5.1); Sodium 136 mmol/L (137-145); Total Protein 7.3 g/dL (6.3-8.2)
[2024-10-12 23:59] VITALS: PULSE 57; RESP 15; O2SAT 97
[2024-10-13] VITALS (8 sets, daily range): BP systolic 112–162; BP diastolic 66–77; PULSE 54–56; RESP 10–18; O2SAT 94–98
[2024-10-13 00:05] LABS: NT-proBNP (BNP-Adult 18+) 140 pg/mL (<450); Troponin I < 0.012 ng/mL (0.01-0.034)
--- NOTE | 2024-10-13 01:31 | ED.GENADULT ---
HPI - General Adult General Chief complaint: Dizziness Stated complaint: weakness Time Seen by Provider: 10/13/24 01:09 Source: patient Mode of arrival: Ambulatory History of Present Illness HPI narrative: 74-year-old male with history of TAVR, history of AICD/pacemaker, taking amiodarone, cardiology clinic visit due next month, no shocking chest sensation, complains of 2 days duration of generalized fatigue. He also admits that he has not been sleeping very well the last couple of nights, multiple social stressors. Denies any chest pain or shortness of breath symptoms. No fevers or chills. He does not have any abdominal pain, nausea, vomiting, black or red stools, loose stools, dysuria or frequency of urination. He denies pain to his anterior chest, jaw, arm, back, shoulder blade. No leg pain symptoms. Denies medication changes, denies taking any extra doses of his medications, denies missing any prescribed chronic medications. Admits to prior alcohol and marijuana use, none recent. No shakiness or diaphoresis symptoms. Related Data Home Medications Medication Instructions Recorded Confirmed amiodarone 200 mg tablet 200 mg PO DAILY 04/25/24 09/20/24 aspirin 81 mg chewable tablet 81 mg PO DAILY 04/25/24 09/20/24 atorvastatin 10 mg tablet 10 mg PO DAILY 04/25/24 09/20/24 metoprolol succinate 100 mg 100 mg PO DAILY 04/25/24 09/20/24 tablet,extended release 24 hr Previous Rx's Medication Instructions Recorded amlodipine 5 mg tablet 5 mg PO BEDTIME #90 tabs 01/30/24 lisinopril 20 mg tablet 20 mg PO DAILY #90 tabs 01/30/24 Allergies Allergy/AdvReac Type Severity Reaction Status Date / Time No Known Drug Allergies Allergy Verified 09/20/24 08:32 Patient History Medical History History of transcatheter aortic valve replacement (TAVR) Presence of combination internal cardiac defibrillator (ICD) and pacemaker Mild anemia Generalized headaches (Unknown) History of smallpox (Unknown) Bright's disease (Unknown) Glomerulonephritis (Unknown) Hyperlipemia (Unknown) Hypertension (Unknown) Colon polyps (Unknown) Surgical History Hx of colonoscopy with polypectomy (08/2012) Family History Brother Prostate cancer Father Heart disease Hypertension Mother Asthma Blood disease Social History Smoking Status: Never smoker Tobacco: How many years used: 4 alcohol intake: never substance use type: marijuana (occasional) Smoking Status: Never smoker alcohol intake frequency: a few times a month Exam Narrative Exam Narrative: GENERAL: Well-developed patient, in mild distress. HEAD: Atraumatic. Normocephalic. EYES: Pupils equal round and reactive. Extraocular motions intact. No scleral icterus. No injection or drainage. ENT: Nose without bleeding, purulent drainage. Throat without erythema, tonsillar hypertrophy or exudate. Airway patent. NECK: Trachea midline. Non tender CARDIOVASCULAR: Regular rate and rhythm without murmurs, gallops, or rubs. RESPIRATORY: Clear to auscultation. Breath sounds equal bilaterally. No wheezes, rales, or rhonchi. Left anterior chest pacer/AICD site, no redness or crepitance or tenderness. GASTROINTESTINAL: Abdomen soft, non-tender, nondistended. EXTREMITIES: No edema or joint tenderness. BACK: Nontender without deformity or crepitance. No flank tenderness. NEURO: AOx3. Motor functions grossly nonfocal SKIN: No rash or erythema of visible areas Initial Vital Signs Initial Vital Signs: Vital Signs Temperature 98.2 F 10/12/24 22:51 Pulse Rate 60 10/12/24 22:51 Respiratory Rate 18 10/12/24 22:51 Blood Pressure 162/77 H 10/12/24 22:51 Pulse Oximetry 98 10/12/24 22:51 Oxygen Delivery Method Room Air 10/12/24 22:51 Course Orders Ordered: ED Orders 10/12/24 22:57 XR chest 1V Stat EKG-12 Lead Stat 10/12/24 23:17 Complete Blood Count AUTO DIFF Stat Comprehensive Metabolic Panel Stat Lipase Stat Magnesium Stat NT-proBNP (BNP-Adult 18+) Stat PTT Partial Thromboplastin Victor Hugo Stat Prothrombin Time INR Stat Troponin & CK Cardiac Panel Stat 10/13/24 01:55 Troponin I Stat Vital Signs Vital signs: Vital Signs - 8 hr 10/12/24 22:51 10/12/24 23:59 10/13/24 00:00 Temperature 98.2 F Pulse Rate 60 57 L 55 L Respiratory Rate 18 15 14 Blood Pressure 162/77 H Pulse Oximetry 98 97 96 Oxygen Delivery Method Room Air 10/13/24 00:00 10/13/24 00:30 10/13/24 01:00 Temperature Pulse Rate Respiratory Rate Blood Pressure 162/77 H 128/66 138/71 Pulse Oximetry Oxygen Delivery Method 10/13/24 01:00 10/13/24 01:30 10/13/24 01:30 Temperature Pulse Rate 54 L 54 L Respiratory Rate 13 18 Blood Pressure 117/66 Pulse Oximetry 97 96 Oxygen Delivery Method 10/13/24 02:00 10/13/24 02:30 10/13/24 02:30 Temperature Pulse Rate 54 L Respiratory Rate 10 L Blood Pressure 128/68 112/67 Pulse Oximetry 94 Oxygen Delivery Method 10/13/24 03:00 10/13/24 03:00 10/13/24 03:30 Temperature Pulse Rate 54 L Respiratory Rate 10 L Blood Pressure 134/69 122/67 Pulse Oximetry 97 Oxygen Delivery Method 10/13/24 03:30 Temperature Pulse Rate 56 L Respiratory Rate 13 Blood Pressure Pulse Oximetry 98 Oxygen Delivery Method Medical Decision Making Lab Data Lab results reviewed: Yes I reviewed the patient's lab results. Lab results narrative: White blood cell count 7100, hemoglobin 14, platelets adequate. Basic metabolic panel unremarkable. Liver functions and lipase normal. Troponin negative/unmeasurable. BNP 140 normal 10/12/24 23:17 10/12/24 23:17 Labs: Lab Results 10/12/24 10/13/24 Range/Units 23:17 01:55 WBC 7.1 (4.5-11.0) X10^3/uL RBC 4.72 (4.5-5.9) X10^6/uL Hgb 14.0 (13.5-17.5) g/dL Hct 41.3 (41-53) % MCV 87.5 (80-100) fL MCH 29.7 (26-34) PG MCHC 34.0 (30-36) % RDW 13.6 (11.6-14.8) % Plt Count 141 L (150-400) X10^3/uL Neut % (Auto) 67.8 (50-75) % Lymph % (Auto) 18.7 L (25-40) % [place] % (Auto) 10.4 (3-14) % Eos % (Auto) 2.0 (2-4) % Baso % (Auto) 1.1 (0-2) % Neut # (Auto) 4800 (7222-6745) /uL Lymph # (Auto) 1300 (8382-2131) /uL [place] # (Auto) 700 (0-900) /uL Eos # (Auto) 100 (0-450) /uL Baso # (Auto) 100 (0-100) /uL PT 11.4 (9.4-12.5) SECONDS INR 1.0 (0.9-1.3) APTT 36 (25.1-36.5) SECONDS Sodium 136 L (137-145) mmol/L Potassium 3.9 (3.4-5.1) mmol/L Chloride 105 (98-107) mmol/L Carbon Dioxide 26 (22-32) mmol/L BUN 20 (9-20) mg/dL Creatinine 1.26 H (0.66-1.25) mg/dL Estimated GFR 59 L (>60) mL/min BUN/Creatinine Ratio 15.9 (6-22) Glucose 127 H (80-110) mg/dL Calcium 9.6 (8.4-10.2) mg/dL Magnesium 1.9 (1.6-2.3) mg/dL Total Bilirubin 0.7 (0.2-1.3) mg/dL AST 34 (17-59) IU/L ALT 28 (<50) IU/L Alkaline Phosphatase 46 (38-126) U/L Total Creatine Kinase 54 L (55-170) U/L Troponin I < 0.012 < 0.012 (0.01-0.034) ng/mL NT-Pro-B Natriuret Pep 140 (<450) pg/mL Total Protein 7.3 (6.3-8.2) g/dL Albumin 4.1 (3.5-5.0) g/dL Globulin 3.2 (1.7-4.1) g/dL Albumin/Globulin Ratio 1.3 (1.0-2.8) Lipase 174 (23-300) U/L Imaging Data Chest x-ray: Radiologist's Impression: [place] [id number] XRay Report Signed Patient: Cisco Leggett MR#: [id number] : 1950 Acct:[id number] Age/Sex: 74 / M Date of Service: 10/12/24 Loc: ED Accession Number: [id number] Procedure: XR chest 1V Ordering Provider: Geoff Jovel MD PROCEDURE: XR CHEST 1V INDICATIONS: chest pain TECHNIQUE: One view of the chest was acquired. COMPARISON: [facility], , XR CHEST 1V, 02/24/2024, 19:07. FINDINGS: Lordotic patient position. Surgical changes and devices: Multi lead left pacemaker. Aortic valvuloplasty. Lungs and pleura: Lungs are clear. No pleural effusions or pneumothorax. Mediastinum: Mild cardiomegaly. Normal mediastinal contour. Bones and chest wall: No suspicious bony lesions. Overlying soft tissues appear unremarkable. IMPRESSION: No acute process. Stable mild cardiomegaly. Dictated by: Veronica Vazquez M.D. on 10/12/2024 at 23:52 Approved by: Veronica Vazquez M.D. on 10/12/2024 at 23:53 ECG Data Attestation: I personally reviewed and interpreted this ECG as follows: Interpretation: 2304, AV dual paced rhythm with ventricular rate 55. TX 198, QRS 164, QTC 489. MDM Narrative Medical decision making narrative: 74-year-old male with history of AICD pacemaker has generalized fatigue through today, recent days not sleeping well could likely be component, cites recent social stressors. No thoughts of hurting self or others. No change in medication, which includes amiodarone. He has not feel like his pacemaker AICD has shocked him. EKG shows paced rhythm, serial troponins negative/unmeasurable. Electrolytes unremarkable. Pacemaker interrogation. Faxed report [employer] received and reviewed. Implant date 02/26/2024, last programmed 04/09/2024, no ventricular tachycardia events, PVCs were recorded, no events greater than 3 beats ectopy. No defibrillation events. No overdrive pacing events. Heart rate range noted 55-58 beats per minute. Interval repeat troponin also negative/unmeasurable. Patient believes his [employer] architect is in [facility] who manages his pacemaker, heart rate on pacer interrogation 55-58 noted, consistent with rate seen here, on monitor has paced rate here 54 bpm. This could be contributing to his fatigue, and may need higher baseline heart rate setting. He will contact his [facility] oracle soa architect tomorrow Monday, to coordinate possible adjustment in pacemaker baseline heart rate setting. Also encouraged to try to obtain more regular sleep pattern, consider counseling or other resources for stress management. Continue current chronic medication regimen for now. Discharge Plan Departure Patient Disposition: Home Clinical Impression: Generalized weakness, Bradycardia, Disturbance of sleep, History of cardiac pacemaker Activity Restrictions/Additional Instructions: Complaint of generalized weakness, recent disturbance in sleep pattern likely contributing factor, ongoing social stressors reported. Consider counseling if needed, discuss resources with your primary care provider. You also have a history of cardiac pacemaker/AICD [employer]. On monitor and EKG here looks like you had complete paced rhythms, all beats were being generated by your pacemaker, no [place] beats seemed obvious while here. Your heart rate however was only about 54 beats per minute average, which is bradycardia. This low setting maybe contributing to your fatigue, perhaps she would benefit from a higher baseline heart rate setting on your pacemaker. Discuss this with your oracle so[employer] architect, who you stated was in the [facility]. Call office of your oracle soa architect tomorrow Monday, to coordinate possible change in baseline heart rate setting. We did query the [employer] pacemaker, interrogation was done, report does not mentioned any shocking or overdrive pacing or any interventions necessary. There were no ventricular ectopy events that were treated. You do have some premature ventricular contractions but no recorded sequence of beats more than 3 in a row. Heart rate range on the interrogation also seemed fairly low, 55-58 beats per minute noted. Contact your oracle so[employer] architect tomorrow Monday to coordinate possible adjustment of your baseline heart rate, to see if that makes you feel more energetic. Encouraged better sleep hygiene, and mental health services as needed to help with social stressors, and improved sleep pattern. Continue your chronic regular medications for now. Return earlier to this/nearest emergency department for any change worsening symptoms or any concerns prior Prescriptions: No Action lisinopril 20 mg tablet 20 mg PO DAILY Qty: 90 3RF Hold Instructions: Needs labs amlodipine 5 mg tablet 5 mg PO BEDTIME Qty: 90 3RF Hold Instructions: Needs labs Rx Instructions: start taking at bedtime metoprolol succinate 100 mg tablet extended release 24 hr 100 mg PO DAILY amiodarone 200 mg tablet 200 mg PO DAILY atorvastatin 10 mg tablet 10 mg PO DAILY aspirin 81 mg tablet,chewable 81 mg PO DAILY Referrals: Felix Pziano DO [Primary Care Provider] - Stand Alone Forms: Patient Portal/API/Survey
[2024-10-13 02:35] LABS: Troponin I < 0.012 ng/mL (0.01-0.034)
== END 2024-10-13 03:50 | disposition home or self-care (01) ==
PROVIDERS: Emergency Provider Emergency Medicine; PCP Family Medicine
DX: R53.1 Weakness (principal); R00.1 Bradycardia, unspecified; G47.9 Sleep disorder, unspecified; Z95.0 Presence of cardiac pacemaker; Z79.82 Long term (current) use of aspirin
CPT/HCPCS: 36415; 71045; 80053; 82550; 83690; 83735; 83880; 84484; 85025; 85610; 85730; 93005; 99283; 99284

== ENCOUNTER → 2025-04-25 10:55 | Outpatient (CLI) | payer MEDICARE, OTHER, SELFPAY ==
[2025-04-25 12:23] LABS: Hemoglobin A1C% w Est Avg Glu 5.2 % (4.0-6.0)
[2025-04-25 12:49] LABS: Cholesterol 253 mg/dL (140-199); HDL Cholesterol 41 mg/dL (40-60); Triglycerides 213 mg/dL (35-150)
[2025-04-25 12:58] LABS: Free T4, Direct Thyroxine 1.34 ng/dL (0.78-2.19)
[2025-04-25 13:12] LABS: Thyroid Stimulating Hormone 8.35 uIU/mL (0.47-4.68)
== END ==
PROVIDERS: PCP Family Medicine; Referring Provider Internal Medicine Cardiovascular Disease; Visit Provider Internal Medicine Cardiovascular Disease
DX: Z13.1 Encounter for screening for diabetes mellitus (principal); E78.5 Hyperlipidemia, unspecified
CPT/HCPCS: 36415; 80061; 83036; 84439; 84443

== ENCOUNTER 2025-05-12 12:30 | Outpatient (RCR) | payer MEDICARE, OTHER, SELFPAY | END 2025-05-12 14:30 | LOC: CAR 12:30 | PROVIDERS: PCP Family Medicine; Referring Provider Internal Medicine Cardiovascular Disease; Visit Provider Internal Medicine Cardiovascular Disease | DX: Z95.2 Presence of prosthetic heart valve (principal) | CPT/HCPCS: 93798 ==